=== PATIENT | male | born 1965 | race American Indian/Alaskan Native ===

== ENCOUNTER 2019-02-04 21:31 | Emergency (ER) | payer OTHER ==
[2019-02-04 22:01] VITALS: BP 134/79
--- NOTE | 2019-02-04 22:01 | Event Note ---
ED Screening Note Date of service: 02/04/19 Time: 21:59 ED Screening Note: 53 y/o male comes in for a boil on left side groin it has burst. PMH DM, HTN. Fever. Smokes This initial assessment/diagnostic orders/clinical plan/treatment(s) is/are subject to change based on patients health status, clinical progression and re- assessment by fellow clinical providers in the ED. Further treatment and workup at subsequent clinical providers discretion. Patient/guardian urged not to elope from the ED as their condition may be serious if not clinically assessed and managed. Initial orders include:
[2019-02-04] MEDS ORDERED: BACTRIM DS PO ONE (23:28)
[2019-02-04] MEDS ORDERED: PERCOCET 5/325 PO ONE (23:28)
[2019-02-04] MEDS ORDERED: IBUPROFEN PO ONE (23:28)
[2019-02-04] MEDS ORDERED: ZOFRAN ODT PO ONE (23:29)
--- NOTE | 2019-02-04 23:39 | Emergency Department Report ---
ED General Adult HPI - General Chief complaint: Skin/Abscess/Foreign Body Stated complaint: BOIL ON PRIVATE AREA Time Seen by Provider: 02/04/19 23:20 Source: patient Mode of arrival: Ambulatory Limitations: No Limitations - History of Present Illness Initial comments: Patient is a 53-year-old -[place] male with a history of hypertension and ogl-[id number]-piroxknek diabetes who presents to the ED with a complaint of acute onset persistent painful swollen mildly erythematous rash in the left inguinal area for the last 2 weeks. Patient states that about a week ago the rash started draining thick purulent discharge, and that this has persisted. Patient denies fever, chills, nausea, vomiting, dizziness, headache, chest pain, shortness of breath, back pain, change in vision, numbness and tingling of lower extremities or testicular pain. MD Complaint: left inguinal swollen rash -: Gradual, week(s) (2) Location: lower extremity (left inguinal area) Radiation: non-radiation Severity scale (0 -10): 5 Quality: aching, sharp Consistency: constant Improves with: none Worsens with: none Associated Symptoms: denies other symptoms, rash. denies: confusion, chest pain, cough, diaphoresis, fever/chills, headaches, loss of appetite, malaise, nausea/vomiting, shortness of breath, syncope, weakness Treatments Prior to Arrival: none - Related Data Previous Rx's Medication Instructions Recorded Last Taken Type Clindamycin [Clindamycin CAP] 300 mg PO Q8H #30 cap 02/04/19 Unknown Rx Ibuprofen [Motrin] 800 mg PO Q8HR PRN #20 tablet 02/04/19 Unknown Rx Ondansetron [Zofran Odt] 4 mg PO Q6HR #15 tab.rapdis 02/04/19 Unknown Rx Sulfamethoxazole/Trimethoprim 1 each PO Q12H #20 tablet 02/04/19 Unknown Rx [Bactrim DS TAB] traMADol [Ultram] 50 mg PO Q6HR PRN #15 tablet 02/04/19 Unknown Rx Allergies Allergy/AdvReac Type Severity Reaction Status Date / Time No Known Allergies Allergy Unverified 02/04/19 21:59 ED Review of Systems ROS: Stated complaint: BOIL ON PRIVATE AREA Other details as noted in HPI Constitutional: denies: chills, fever Eyes: denies: eye pain, eye discharge, vision change ENT: denies: ear pain, throat pain Respiratory: denies: cough, shortness of breath, wheezing Cardiovascular: denies: chest pain, palpitations Endocrine: no symptoms reported Gastrointestinal: denies: abdominal pain, nausea, diarrhea Genitourinary: other (swollen mildly erythematous rash on left inguinal area with purulent discharge). denies: urgency, dysuria Musculoskeletal: denies: back pain, joint swelling, arthralgia Skin: rash (swollen painful erythematous rash on left inguinal area with purulent discharge). denies: lesions Neurological: denies: headache, weakness, paresthesias Psychiatric: denies: anxiety, depression Hematological/Lymphatic: denies: easy bleeding, easy bruising ED Past Medical Hx - Past Medical History Hx Hypertension: Yes Hx Renal Disease: Yes Hx Dementia: Yes - Surgical History Past Surgical History?: Yes Additional Surgical History: boil removal - Social History Smoking Status: Current Every Day Smoker Substance Use Type: None - Medications Home Medications: Home Medications Medication Instructions Recorded Confirmed Last Taken Type Clindamycin [Clindamycin CAP] 300 mg PO Q8H #30 cap 02/04/19 Unknown Rx Ibuprofen [Motrin] 800 mg PO Q8HR PRN #20 tablet 02/04/19 Unknown Rx Ondansetron [Zofran Odt] 4 mg PO Q6HR #15 tab.rapdis 02/04/19 Unknown Rx Sulfamethoxazole/Trimethoprim 1 each PO Q12H #20 tablet 02/04/19 Unknown Rx [Bactrim DS TAB] traMADol [Ultram] 50 mg PO Q6HR PRN #15 tablet 02/04/19 Unknown Rx ED Physical Exam - General Limitations: No Limitations General appearance: alert, in no apparent distress - Head Head exam: Present: atraumatic, normocephalic, normal inspection - Eye Eye exam: Present: normal appearance, PERRL, EOMI. Absent: conjunctival injection, nystagmus Pupils: Present: normal accommodation - ENT ENT exam: Present: normal exam, mucous membranes moist, TM's normal bilaterally, normal external ear exam - Neck Neck exam: Present: normal inspection, full ROM - Respiratory Respiratory exam: Present: normal lung sounds bilaterally. Absent: respiratory distress, wheezes, rales, rhonchi, chest wall tenderness, accessory muscle use, decreased breath sounds, prolonged expiratory - Cardiovascular Cardiovascular Exam: Present: regular rate, normal rhythm. Absent: systolic murmur, diastolic murmur, rubs, gallop - GI/Abdominal GI/Abdominal exam: Present: soft, normal bowel sounds. Absent: tenderness, guarding, rigid, hyperactive bowel sounds, hypoactive bowel sounds, mass - Rectal Rectal exam: Present: deferred - exam: Present: normal inspection, circumcision. Absent: scrotal swelling, vertical testicular lie External exam: Present: erythema (mildly), other (mildly erythematous swollen tender maculopapular rash on left inguinal area with purulent discharge). Absent: lesions, lacerations, ecchymosis - Extremities Exam Extremities exam: Present: normal inspection, normal capillary refill - Back Exam Back exam: Present: normal inspection, full ROM. Absent: tenderness, muscle spasm, vertebral tenderness - Neurological Exam Neurological exam: Present: alert, oriented X3, CN II-XII intact, normal gait, reflexes normal - Psychiatric Psychiatric exam: Present: normal affect, normal mood - Skin Skin exam: Present: warm, dry, intact, normal color, rash (swollen tender maculopapular rash on left inguinal area with purulent discharge), erythema (erythematous rash on left inguinal area with purulent discharge). Absent: petechiae ED Course Vital Signs 02/04/19 21:58 Temperature 98.2 F Pulse Rate 99 H Respiratory 18 Rate Blood Pressure 134/79 O2 Sat by Pulse 96 Oximetry - Reevaluation(s) Reevaluation #1: 02/04/19 23:41 Patient is alert and oriented 3 and is not in distress. The left inguinal open, draining wound was cleaned thoroughly and dressed appropriately. Patient was treated initially in the ED with oral antibiotics and pain medications, and discharged home on antibiotics and pain medication. Patient advised to follow- up with his primary care physician in 7-10 days for reevaluation or return to the ED immediately if symptoms get worse. ED Medical Decision Making - Medical Decision Making Patient is alert and oriented 3 and is not in distress. The left inguinal open, draining wound was cleaned thoroughly and dressed appropriately. Patient was treated initially in the ED with oral antibiotics and pain medications, and discharged home on antibiotics and pain medication. Patient advised to follow- up with his primary care physician in 7-10 days for reevaluation or return to the ED immediately if symptoms get worse. - Differential Diagnosis cellulitis; acute folliculitis; cutaneous abscess Critical care attestation.: If time is entered above; I have spent that time in minutes in the direct care of this critically ill patient, excluding procedure time. ED Disposition Clinical Impression: Cellulitis of left groin, Cutaneous abscess of left lower limb Disposition: TO HOME OR SELFCARE Is pt being admited?: No Does the pt Need Aspirin: No Condition: Stable Instructions: Cellulitis (ED), Folliculitis (ED), Abscess (ED) Additional Instructions: Take medications, drink plenty of fluids and follow up with your primary care physician in 7-10 days for reevaluation. Return to the ED immediately if symptoms get worse. Prescriptions: Sulfamethoxazole/Trimethoprim [Bactrim DS TAB] 1 each PO Q12H #20 tablet Clindamycin [Clindamycin CAP] 300 mg PO Q8H #30 cap Ibuprofen [Motrin] 800 mg PO Q8HR PRN #20 tablet PRN Reason: Pain , Severe (7-10) traMADol [Ultram] 50 mg PO Q6HR PRN #15 tablet PRN Reason: Pain Ondansetron [Zofran Odt] 4 mg PO Q6HR #15 tab.rapdis Referrals: [facility] [Outside] - 3-5 Days Time of Disposition: 23:45 Print Language: TUNISIAN
== END 2019-02-05 00:20 | disposition home or self-care (01) ==
LOC: ED 21:31
DX: L03.314 Cellulitis of groin (principal); L02.214 Cutaneous abscess of groin; F03.90 Unspecified dementia, unspecified severity, without behavioral disturbance, psychotic disturbance, mood disturbance, and anxiety; I10 Essential (primary) hypertension; F17.200 Nicotine dependence, unspecified, uncomplicated; Z79.899 Other long term (current) drug therapy; Z98.890 Other specified postprocedural states; Z87.448 Personal history of other diseases of urinary system
CPT/HCPCS: 99282; Q0162